=== PATIENT | female | born 1965 | race Caucasian/White ===

== ENCOUNTER → 2018-02-23 | Outpatient (CLI) | payer OTHER, BC ==
[2018-02-18 15:49] VITALS: BMI 39.2
[2018-02-23 14:44] VITALS: BP 131/66; PULSE 68; RESP 16
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
== END | disposition home or self-care (01) ==
LOC: PNWHC3 14:01
PROVIDERS: ATTEND Specialist
DX: G90.521 Complex regional pain syndrome I of right lower limb (principal); E11.9 Type 2 diabetes mellitus without complications; E78.5 Hyperlipidemia, unspecified; E07.9 Disorder of thyroid, unspecified; M10.9 Gout, unspecified; F41.9 Anxiety disorder, unspecified; F32.9 Major depressive disorder, single episode, unspecified; Z79.1 Long term (current) use of non-steroidal anti-inflammatories (NSAID); Z79.891 Long term (current) use of opiate analgesic; Z79.84 Long term (current) use of oral hypoglycemic drugs; Z98.890 Other specified postprocedural states; Z88.6 Allergy status to analgesic agent
CPT/HCPCS: 99211

== ENCOUNTER 2018-03-09 08:25 | Day surgery (SDC) | payer OTHER, BC ==
[2018-03-07 09:42] VITALS: BMI 38.3
[~2018-03-09 08:25] MED LIST: LACTATED RINGERS 1,000 ML IV SCH
[2018-03-09 08:41] VITALS: TEMP 98.1
[2018-03-09] MEDS ORDERED: LIDOCAINE 1% 20 ML VIAL (10MG/ML) FOR IV START INTRADERMA ONE (08:46)
[2018-03-09 09:10] LABS: Glucose,Whole Blood 111 mg/dL (75-99)
[2018-03-09] MEDS ORDERED: IV FLUID CONTINUATION 1,000 ML IV ONE (09:30)
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
[2018-03-09 10:23] VITALS: BP 126/78; PULSE 56; RESP 18
--- NOTE | 2018-03-09 10:29 | FL ---
EXAMINATION TYPE: FL guided pain mgmt statistic DATE OF EXAM: 03/09/2018 FLUOROSCOPY Fluoroscopy time of 8 seconds was used during right lumbar sympathetic nerve block. 2 image/s docume nt/s the procedure.
--- NOTE | 2018-03-11 19:51 | CDI ---
Outpatient Documentation Clarification Form Date: 03/11/18 CDS/Warp Tester Name: Marifer Silva Phone: If any questions, call Yuridia Chu Manager Billing at [phone] Patient Name: Purnima Wheeler Admit Date: 03/09/18 Discharge Date: 03/09/18 ATTENTION: The [facility] Coding Staff appreciate your assistance in clarifying documentation. Please respond to the clarification below the line at the bottom and electronically sign. The [facility] Coding staff will review the response and follow-up if needed. Please note: Queries are made part of the Legal Health Record. If you have any questions, please contact the Manager Billing. Dear Dr. García, What type of sedation was used for the procedure? Was it moderate conscious sedation, MAC, or something else? Thank you for your kind consideration. conscious sedation. no anesthesia team involved. RON
== END 2018-03-09 10:44 | disposition home or self-care (01) ==
LOC: ORPAIN 08:25
PROVIDERS: ATTEND Pain Medicine Pain Medicine
DX: G90.521 Complex regional pain syndrome I of right lower limb (principal); E11.9 Type 2 diabetes mellitus without complications; E78.5 Hyperlipidemia, unspecified; E07.9 Disorder of thyroid, unspecified; M10.9 Gout, unspecified; F41.9 Anxiety disorder, unspecified; F32.9 Major depressive disorder, single episode, unspecified; Z79.84 Long term (current) use of oral hypoglycemic drugs; Z79.890 Hormone replacement therapy; Z79.899 Other long term (current) drug therapy; Z88.5 Allergy status to narcotic agent
CPT/HCPCS: 64520; J2250; J2001; Q9966; 99152; 99153

== ENCOUNTER → 2018-03-29 | Outpatient (CLI) | payer OTHER, BC ==
--- NOTE | 2018-03-29 14:33 | P.PAINPG ---
Subjective Progress Note Date: 03/29/18 This is a follow-up visit for this 52 years old female with a chronic history of a right lower extremity pain she statescomplex regional pain syndrome type I right lower extremity, with done right-sided lumbar sympathetic block done a few weeks ago and patient reported that she has some benefit from it but she continued to have right lower extremity pain, and she continued to have swelling and some discoloration, she is currently on Neurontin 100 mg 3 times aday Physical Examinations : 1-Constitutional : Cooperative , not in acute distress . 2-HEENT : nech ; supple , no Lymphadenopathy , no Thyromegaly , :eyes , no icterus, no photophobia . ENT : , normal oropharynx , no Thrush 3- Respiratory : Chest clear to auscultations Bilaterally , no wheezing . 4- Cardiovascular : regular rate and rhythem , S1 , S2 , no S3 , no S4. 5- Gastrointestinal: abdomen soft no tenderness , no organomegally . 6- Genitourinary : Defferred . 7-Integumentary : No cellulitis , no ulcers , normal skin turgor , no cyanotic . 8- neurologic : Cranial nerve II to XII intact , no focal neurological deffecit 9-psychatric : alert , oriented X 3 , appropriate affect , intact judgment and insight . 10-Lymphatic : no Lymphadenopathy. 11- musculoskeltal: antalgic gait , unable to do any weightbearing on her right lower extremity Lumber spine moter stegnth lower extremities ,thigh and legs 3/5 Right side , 5/5 Left side deep tendon reflexes : normal Knee Jerk , normal ankle Jerk No atrophy in the right lower extremity, No erythema in the right lower extremity. Positive allodynia , in the anterior lateral aspect of the right thigh and right leg Assessment and Plan Plan: Assessment and plan= complex regional pain syndrome type I in the right lower extremity Patient had long-term physical therapy with some improvement, recommend continued physical therapy. Patient could benefit from increasing the Neurontin 200 mg 3 times a day , Patient could benefit from repeat right-sided lumbar sympathetic block under fluoroscopy guidance, procedure risk and benefits and alternatives discussed with the patient and her agreed with proceeding Objective - Vital Signs Vital signs: Intake & Output 03/28/18 03/29/18 03/29/18 18:59 06:59 18:59 Weight 88.451 kg PQRS Measure Charge Sheet Measure #130: Documentation of Current Meds in Medical Chart: Patient's medications documented in chart Measure #226: Tobacco Use: Screen & Cessation Intervention: Pt not a tobacco user Measure #111: Pneumonia Vaccination: Pneumococcal vaccine NOT administered or previously given Measure #47: Advance Care Plan: Advance care planning discussed & documented, pt chose/unable to give Measure #412: Opioid Treatment Agreement: No documentation of signed opioid treatment agreement Measure #408: Opioid Therapy Follow-up Evaluation: Patient had NO f/u eval minimum every 3 months during opioid therapy Measure #317: Preventitive Care & Scrn High Bld Press & F/U: Normal blood pressure, f/u not required Measure #128: Body Mass Index (BMI) Screening & Follow-up: BMI documented ABOVE normal parameters - f/u documented Measure #131: Pain Assessment & Follow-up: Pain positive & plan documented, Follow-up scheduled Measure #431: Unhealthy Alcohol Use Preventative Care & Scrn: Patient not identified as an unhealthy alcohol user PQRS Narrative: Smoking Status Never smoker Do You Want the Pneumonia No Vaccine AT THIS TIME? Pain Intensity [Right Knee] 7 Scale Used Numeric (1 - 10) Hx Alcohol Use (MH) No Home Medications: Ambulatory Orders Escitalopram [Lexapro] 20 mg PO HS 02/18/18 Furosemide [Lasix] 40 mg PO DAILY 02/18/18 Multivitamins, Thera [Multivitamin (formulary)] 1 tab PO DAILY 02/18/18 [place]-3 Fatty Acids/Fish Oil [Fish Oil 1,000 mg Softgel] 3 each PO QAM 02/18/18 metFORMIN HCL [Glucophage] 500 mg PO QAM 02/18/18 Ibuprofen [Motrin] 800 mg PO Q6HR 02/23/18 ALPRAZolam [Xanax] 0.5 - 1 mg PO HS 03/07/18 Gabapentin [Neurontin] 100 mg PO TID 03/07/18 Levothyroxine Sodium [Synthroid] 50 mcg PO DAILY 03/07/18 Controlled Substance Measures - Controlled Substance Measures Is patient prescribed a controlled substance at discharge?: No When asked, does pt state using other controlled substances?: No If prescribed controlled substance>3 days was MAPS reviewed?: No If Rx opioid, was Start Talking consent form obtained?: No If opioid is for acute pain is fill amount 7 days or less?: No Was information provided regarding opioid addiction?: No
[2018-03-29 14:34] VITALS: BP 112/71; PULSE 71; RESP 16
== END | disposition home or self-care (01) ==
LOC: PNWHC3 13:35
PROVIDERS: ATTEND Specialist
DX: G90.521 Complex regional pain syndrome I of right lower limb (principal); Z79.84 Long term (current) use of oral hypoglycemic drugs; Z79.1 Long term (current) use of non-steroidal anti-inflammatories (NSAID); Z79.899 Other long term (current) drug therapy; Z98.890 Other specified postprocedural states
CPT/HCPCS: 99211

== ENCOUNTER → 2018-04-13 | Day surgery (SDC) | payer OTHER, BC ==
[2018-04-12 12:04] VITALS: BMI 39.4
[~2018-04-13] MED LIST changes: +KETOROLAC 30 MG/ML 1 ML VIAL IVP ONE; +KETOROLAC 30 MG/ML 1 ML VIAL IVP STA; -LACTATED RINGERS 1,000 ML IV SCH; +SODIUM CHLORIDE 0.9% 500 ML 500 ML IV SCH
[2018-04-13 07:41] VITALS: RESP 18
[2018-04-13 07:41] LABS: Glucose,Whole Blood 123 mg/dL (75-99)
--- NOTE | 2018-04-13 09:08 | P.PCN ---
Date of Procedure: 04/13/18 Procedure(s) Performed: PREOPERATIVE DIAGNOSIS: complex regional pain syndrome.Type I , Right lower Extremities. POSTOPERATIVE DIAGNOSIS: complex regional pain syndrome.Type I , Right lower Extremities. . PROCEDURE: Right side lumbar sympathetic block with fluoroscopic guidence ANESTHESIA: Local with 1% lidocaine 3 ml ; moderate sedation with Versed 4 mg and fentanyl. 100 Micrograms EBL: None. PROCEDURE INDICATION: The patient with RSD which has responded to lumbar sympathetic block. The previous one lasted one month. PROCEDURE DESCRIPTION: The patient was seen and identified in the preoperative area. Risks, benefits, complications, and alternatives were discussed with the patient. The patient agreed to proceed with the procedure and signed the consent. IV was started, and vital signs were stable. Patient was taken to the OR and time out was completed. The patient was placed in prone position on procedure table and a pillow was placed under the abdomen to reduce lumbar lordosis. The lumbosacral area was prepped and draped in the usual sterile fashion. Critical pause was taken. Vital signs were closely monitored during the procedure. Fluoroscopy was used to identify the L3 vertebra and target points were marked.5 cc Lidocaine 1% was used with a 25 guage needle to achieve adequate local anesthesia of the skin and subcutaneous tissue. 22-guage,5-inch spinal needles were inserted through the skin at the lateral border of the Right side of L3 vertebral body and then advanced under fluoroscopic guidance in oblique , anterior, and lateral views. The needles were advanced to the serena-lateral border of the vertebra from the Right side and 5cc of Isoview 200 was injected to confirm needle position. After satisfactory positioning of the needles, and negative aspiration of blood, CSF then 15 cc of 0.75 % preservative free Ropivacaine with 40 mg kenalog was injected with intermittent aspiration. [place] were withdrawn intact. COMPLICATIONS: None. DISPOSITION / PLANS: The patient was placed in a supine position and transferred to the recovery area in a stable condition for observation and was discharged from the recovery room after meeting discharge criteria. Home discharge instructions given to the patient by the staff. The patient was reexamined prior to discharge. The patient will schedule a follow up in the clinic
--- NOTE | 2018-04-13 10:12 | FL ---
EXAMINATION TYPE: FL guided pain mgmt statistic DATE OF EXAM: 04/13/2018 CLINICAL HISTORY: Back pain. TECHNIQUE: Fluoroscopy. COMPARISON: None. FINDINGS: Fluoroscopic guidance was provided during pain relief procedure performed by Dr. Perez . A total of 6 seconds of fluoroscopic time was utilized during the procedure and two spot images ar e acquired. Images acquired shows needle localization at level of spine. IMPRESSION: As Above.
[2018-04-13 10:35] VITALS: PULSE 60
[2018-04-13 10:38] VITALS: BP 114/58
[2018-04-13 11:22] VITALS: TEMP 98.4
== END ==
LOC: ORPAIN 07:19
PROVIDERS: ATTEND Specialist
DX: G90.521 Complex regional pain syndrome I of right lower limb (principal); Z88.5 Allergy status to narcotic agent
CPT/HCPCS: 64520; J2250; J3301; J3010; J1885; Q9966; 99152

== ENCOUNTER → 2018-05-31 | Outpatient (CLI) | payer OTHER, BC ==
[2018-05-31 14:04] VITALS: BP 130/64; PULSE 70; RESP 16
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
== END ==
LOC: PNWHC3 13:50
PROVIDERS: ATTEND Specialist
DX: G90.521 Complex regional pain syndrome I of right lower limb (principal)
CPT/HCPCS: 99211

== ENCOUNTER 2018-07-12 07:55 | Day surgery (SDC) | payer BC, OTHER ==
[2018-07-11 11:01] VITALS: BMI 37.3
[~2018-07-12 07:55] MED LIST changes: -KETOROLAC 30 MG/ML 1 ML VIAL IVP ONE; -KETOROLAC 30 MG/ML 1 ML VIAL IVP STA
[2018-07-12 08:35] VITALS: TEMP 98
[2018-07-12 08:49] LABS: Glucose,Whole Blood 106 mg/dL (75-99)
[2018-07-12] MEDS ORDERED: LACTATED RINGERS 1,000 ML IV ONE (08:49)
[2018-07-12] MEDS ORDERED: LIDOCAINE 1% 20 ML VIAL (10MG/ML) FOR IV START INTRADERMA ONE (08:49)
[2018-07-12] MEDS ORDERED: IV FLUID CONTINUATION 1,000 ML IV ONE (09:40)
[2018-07-12 09:41] VITALS: RESP 18
[2018-07-12 10:46] VITALS: BP 161/76; PULSE 75
--- NOTE | 2018-07-12 11:46 | FL ---
EXAMINATION TYPE: FL guided pain mgmt statistic DATE OF EXAM: 07/12/2018 CLINICAL HISTORY: Low back pain. TECHNIQUE: Fluoroscopy. COMPARISON: None. FINDINGS: Fluoroscopic guidance was provided during pain relief procedure performed by Dr. Perez . A total of 10 seconds of fluoroscopic time was utilized during the procedure and 3 spot images are acquired. Images acquired shows needle localization with contrast injection in exiting lumbar nerve roots. IMPRESSION: As Above.
[2018-07-12 11:53] LABS: Glucose,Whole Blood 112 mg/dL (75-99)
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
== END 2018-07-12 11:55 | disposition home or self-care (01) ==
LOC: ORPAIN 07:55
PROVIDERS: ATTEND Specialist
DX: G90.521 Complex regional pain syndrome I of right lower limb (principal); Z88.5 Allergy status to narcotic agent
CPT/HCPCS: 64999; J2250; J3301; J3010; Q9966; 64640; 99152

== ENCOUNTER → 2018-09-01 | Outpatient (CLI) | payer OTHER, BC ==
[2018-09-01 15:06] VITALS: BP 122/80; PULSE 57; RESP 16
--- NOTE | 2018-09-01 15:43 | P.PAINPG ---
Subjective Progress Note Date: 09/01/18 Principal diagnosis: Complex regional pain syndrome right lower extremity This is a pleasant 52-year-old woman with a history of post regional pain syndrome in her right lower extremity who recently underwent pulsed radio frequency ablation of her sympathetic chain. She reports that this procedure substantially helps relieve the sensitivity pain she had in her legs. She reports that prior to this procedure she was unable to wear long pants due to sensitivity. She also had severe pain by using blankets in the having the water from her shower. This has gotten much better. She now reports pain laterally on her ankle. She has had another MRI ordered of her ankle from her primary care physician. She also reports pain in her medial knee. She has had an MRI of this in the past as well. The MRI of her ankle revealed what seems to be a fatty deposits in her dorsal lateral ankle which is exactly where her pain is. The MRI of her knee revealed an effusion in the knee. She was previously seen by an orthopedist but he referred her to us for her, but regional pain syndrome symptoms which seem to have gotten much better. The patient reports that immediately after the radio frequency ablation procedure she experienced incontinence in the recovery room. She reports that she has had this ever since. She reports no awareness of when she is emptying her bladder. She now has to use pads and where garments. She is concerned about this and is wondering what can be done about it. Objective - Vital Signs Vital signs: Vital Signs Temp Pulse 57 L 09/01/18 15:00 Resp 16 09/01/18 15:00 BP 122/80 09/01/18 15:00 Pulse Ox Intake & Output 08/31/18 09/01/18 09/01/18 18:59 06:59 18:59 Weight 89.358 kg - Exam General: The patient is alert and oriented. Patient is not sedated Patient answers all question appropriately. Cardiac: Heart is regular in rate and rhythm Respiratory: Clear to auscultation. No audible wheezes. Abdomen: Soft nontender nondistended. Musculoskeletal: Strength is normal bilaterally. Sensation is normal bilaterally. Straight leg raise is negative bilaterally. An elevated area consistent with the presence of a lipoma is found in her dorsolateral right ankle. There is also edema posterior to this. She also has edema and tenderness in her medial right knee. She has no focal motor deficits and lower extremities. She is not tender to palpation over her lumbar sacral spine. There are no rashes or evidence of infection. Neurological: Reflexes are preserved and symmetric bilaterally. There is no allodynia present in her right leg whatsoever Assessment and Plan (1) Complex regional pain syndrome i of right lower limb Current Visit: Yes Status: Acute Code(s): G90.521 - COMPLEX REGIONAL PAIN SYNDROME I OF RIGHT LOWER LIMB SNOMED Code(s): 336858737762263 (2) Mechanical pain of right knee Current Visit: Yes Status: Acute Code(s): M25.561 - PAIN IN RIGHT KNEE SNOMED Code(s): 5883015 (3) Ankle pain Current Visit: Yes Status: Acute Code(s): M25.579 - PAIN IN UNSPECIFIED ANKLE AND JOINTS OF UNSPECIFIED FOOT SNOMED Code(s): 677251816 (4) Incontinence in female Current Visit: Yes Status: Acute Code(s): R32 - UNSPECIFIED URINARY INCONTINENCE SNOMED Code(s): 15823988 Plan: Plan of Care 1. Medications: I will increase the patient's gabapentin to 300 mg by mouth 3 times a day. She is tolerating it well at 200 mg by mouth 3 times a day and feels that this does significant only help her with her pain. I have reviewed the patient's MAPS report and it reveals expected results. Patient has signed an opiate agreement as well as opiate consent for treatment in our clinic. They understand the risks and benefits of opiate medications. They are aware of the potential for addiction. 2. Interventions: A spinal cord stimulator trial had previously been discussed with the patient. Given that she no longer has any allodynia symptoms I would like to hold off on this procedure. I explained this to the patient. I believe most of her knee and ankle pain is mechanical in nature should be addressed accordingly. 3. Referrals: I might refer the patient to a urologist or a neurologist in the future 4. Testing:I'm referring the patient for an MRI of her lumbar spine given her acute onset of incontinence after her procedure. 5. Follow-up: 1 month to evaluate the efficacy of the Neurontin increase, review MRI of lumbar spine and potentially refer to a neurologist or urologist based on her status report of her incontinence. PQRS Measure Charge Sheet Measure #130: Documentation of Current Meds in Medical Chart: Patient's medications documented in chart Measure #226: Tobacco Use: Screen & Cessation Intervention: Pt not a tobacco user Measure #111: Pneumonia Vaccination: Pneumococcal vaccine administered or previously received Measure #47: Advance Care Plan: Advance care planning discussed & documented, plan or surrogate given Measure #412: Opioid Treatment Agreement: Documented signed opioid trtmnt agreemnt min once during opioid trtmnt Measure #408: Opioid Therapy Follow-up Evaluation: Patient had f/u eval minimum every 3 months during opioid therapy Measure #317: Preventitive Care & Scrn High Bld Press & F/U: Normal blood pressure, f/u not required Measure #128: Body Mass Index (BMI) Screening & Follow-up: BMI documented ABOVE normal parameters - f/u documented Measure #131: Pain Assessment & Follow-up: Pain positive & plan documented Measure #431: Unhealthy Alcohol Use Preventative Care & Scrn: Patient not iden tified as an unhealthy alcohol user PQRS Narrative: Smoking Status Never smoker Blood Pressure 122/80 Pain Intensity [Right Ankle] 5 Pain Intensity [Right Knee] 5 Hx Alcohol Use (MH) No Home Medications: Ambulatory Orders Escitalopram [Lexapro] 20 mg PO HS 02/18/18 Furosemide [Lasix] 20 mg PO DAILY 02/18/18 Multivitamins, Thera [Multivitamin (formulary)] 1 tab PO DAILY 02/18/18 [place]-3 Fatty Acids/Fish Oil [Fish Oil 1,000 mg Softgel] 3 each PO QAM 02/18/18 metFORMIN HCL [Glucophage] 500 mg PO QAM 02/18/18 Ibuprofen [Motrin] 800 mg PO Q6HR 02/23/18 ALPRAZolam [Xanax] 0.5 - 1 mg PO HS 03/07/18 Levothyroxine Sodium [Synthroid] 50 mcg PO DAILY 03/07/18 Gabapentin [Neurontin] 200 mg PO TID #180 cap 05/31/18 Controlled Substance Measures - Controlled Substance Measures Is patient prescribed a controlled substance at discharge?: Yes When asked, does pt state using other controlled substances?: No If prescribed controlled substance>3 days was MAPS reviewed?: Yes
== END ==
LOC: PNWHC3 14:22
PROVIDERS: ATTEND Pain Medicine Pain Medicine
DX: G90.521 Complex regional pain syndrome I of right lower limb (principal); M25.561 Pain in right knee; M25.579 Pain in unspecified ankle and joints of unspecified foot; R32 Unspecified urinary incontinence; Z79.1 Long term (current) use of non-steroidal anti-inflammatories (NSAID); Z79.899 Other long term (current) drug therapy
CPT/HCPCS: 99211

== ENCOUNTER → 2018-09-20 | Outpatient (CLI) | payer OTHER, BC ==
[2018-09-20 15:12] VITALS: BP 114/73; PULSE 65; RESP 16
--- NOTE | 2018-09-21 11:31 | P.PN ---
Subjective Progress Note Date: 09/20/18 This is a follow-up visit for this 52-year-old woman with a history of post regional pain syndrome in her right lower extremity , 2018 ,she underwent pulsed radio frequency ablation of her the Right lumbar sympathetic chain. She reports that this procedure improved her pain for several weeks. She now reports pain laterally on her right ankle. She has had another MRI ordered of her ankle from her primary care physician. She also reports pain in her medial knee. She has had an MRI of this in the past as well. The MRI of her ankle revealed what seems to be a fatty deposits in her dorsal lateral ankle which is exactly where her pain is. The MRI of her knee revealed an effusion in the knee. . The patient reports that immediately after the radio frequency ablation procedure she experienced incontinence in the recovery room. She reports that she has had this ever since. She reports no awareness of when she is emptying her bladder. She now has to use pads and where garments. She is concerned about this and is wondering what can be done about it. Last visit we ordered MRI of the lumbosacral spine but it was not done yet because of insurance approval, he shouldn't continue to have incontinence, she denies any fever or night sweats, she denies any discoloration of the skin of her lower extremity ,she had normal skin color in both lower extremity, she had localized swelling at the lateral aspect of her right ankle Physical Examinations : -Constitutiona : Cooperative , not in acute distress . -HEENT : nech ; supple , no Lymphadenopathy , normal thyroid size . eyes : no ptosis , no icterus, no photophobia .. Lumber spine moter stegnth lower extremities ,thigh and legs 5/5 Right side , 5/5 Left side Positive allodynia at the entier right lower extremity ,( from the thigh down to the ankle ). Swelling at the lateral aspect of the right ankle , associated with severe tenderness (patient had fatty tumor on the right ankle ). Assessment and Plan 1-complex regional pain syndrome type I on the right lower extremity, Status post pulsed radiofrequency of the right lumbar sympathetic chain. 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 Patient will be referred to see podiatry/orthopedic surgeon Dr. Hall for evaluation. 3-urinary incontinence. MRI of the lumbar and sacral spine was ordered last visit is not done yet, waiting for insurance authorization We will refer patient for evaluation by urologist, to evaluate the cause of the incontinence. Patient could benefit from increase Neurontin dose to 400 mg every 8 hours she will be seen in the clinic in a few weeks of limited by that time we have the MRI report and the urology evaluation PQRS Measure Charge Sheet Measure #130: Documentation of Current Meds in Medical Chart: Patient's medications documented in chart Measure #226: Tobacco Use: Screen & Cessation Intervention: Pt not a tobacco user Measure #111: Pneumonia Vaccination: Pneumococcal vaccine administered or previously received Measure #47: Advance Care Plan: Advance care planning discussed & documented, plan or surrogate given Measure #412: Opioid Treatment Agreement: Documented signed opioid trtmnt agreemnt min once during opioid trtmnt Measure #408: Opioid Therapy Follow-up Evaluation: Patient had f/u eval minimum every 3 months during opioid therapy Measure #317: Preventitive Care & Scrn High Bld Press & F/U: Normal blood pressure, f/u not required Measure #128: Body Mass Index (BMI) Screening & Follow-up: BMI documented ABOVE normal parameters - f/u documented Measure #131: Pain Assessment & Follow-up: Pain positive & plan documented Measure #431: Unhealthy Alcohol Use Preventative Care & Scrn: Patient not identified as an unhealthy alcohol user PQRS Narrative: Objective - Vital Signs Vital signs: Vital Signs Temp Pulse 65 09/20/18 15:04 Resp 16 09/20/18 15:04 BP 114/73 09/20/18 15:04 Pulse Ox 94 L 09/20/18 15:04 Intake & Output 09/20/18 09/21/18 09/21/18 18:59 06:59 18:59 Weight 91.626 kg
== END | disposition home or self-care (01) ==
LOC: PNWHC3 14:53
PROVIDERS: ATTEND Specialist
DX: G90.521 Complex regional pain syndrome I of right lower limb (principal); D17.23 Benign lipomatous neoplasm of skin and subcutaneous tissue of right leg; R32 Unspecified urinary incontinence; Z98.890 Other specified postprocedural states
CPT/HCPCS: 99211

== ENCOUNTER → 2018-09-26 | Outpatient (CLI) | payer OTHER, BC ==
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
== END | disposition home or self-care (01) ==
LOC: RADMRIMAIN 17:18
PROVIDERS: ATTEND Pain Medicine Pain Medicine
DX: N39.498 Other specified urinary incontinence (principal); Z98.890 Other specified postprocedural states; V89.2XXS Person injured in unspecified motor-vehicle accident, traffic, sequela
CPT/HCPCS: 72148

== ENCOUNTER → 2018-10-19 | Outpatient (CLI) | payer OTHER, BC ==
[2018-10-19 14:28] VITALS: BP 118/74; PULSE 74; RESP 20
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
== END | disposition home or self-care (01) ==
LOC: PNWHC3 14:06
PROVIDERS: ATTEND Pain Medicine Pain Medicine
DX: G90.521 Complex regional pain syndrome I of right lower limb (principal); R32 Unspecified urinary incontinence; Z98.890 Other specified postprocedural states; Z79.899 Other long term (current) drug therapy
CPT/HCPCS: 99211